=== PATIENT | male | born 1965 | race Caucasian/White ===

== ENCOUNTER 2018-04-14 19:34 | Inpatient (IN) | payer BC ==
[~2018-04-14 19:34] MED LIST: ISOVUE-370 76%-LOCM 1 ML ONE
[2018-04-14 21:14] LABS: Hemoglobin 16.9 g/dL (14.0-18.0); Mean Corpuscular HGB CONC 33.6 g/dL (32.0-36.0); Mean Corpuscular Hemoglobin 30.3 pg (27.0-31.0); Mean Corpuscular Volume 90.2 fL (78.0-98.0); Mean Platelet Volume 6.8 fL (7.4-10.4); Platelet Count 272 thou/uL (130-400); RBC Distribution Width 12.2 % (11.5-14.5); Red Blood Cell (RBC) Count 5.58 mill/uL (4.70-6.10); White Blood Cell (WBC) Count 22.6 thou/uL (4.8-10.8)
[2018-04-14 21:32] LABS: ALT (SGPT) 19 U/L (8-55); AST (SGOT) 20 U/L (5-34); Albumin 4.6 g/dL (3.5-5.0); Alkaline Phosphatase 73 U/L (40-150); Anion Gap 14 mmol/L (10-20); BUN (Urea Nitrogen) 12 mg/dL (8.4-25.7); Band 8 % (5-11); Calc. Creatinine Clearance 0 mL/min (70-130); Calcium 10.4 mg/dL (7.8-10.44); Carbon Dioxide 25 mmol/L (22-29); Chloride 97 mmol/L (98-107); Estimated GFR-MDRD 66; Globulin 4.1 g/dL (2.4-3.5); Glucose 162 mg/dL (70-105); Lymphocytes 16 % (21-51); MDiff Complete? YES; Monocytes 7 % (0-10); Neutrophil 68 % (42-75); PLT Morphology Comment Appears Adequate; Protein, Total 8.7 g/dL (6.0-8.3); Reactive Lymphocytes 1 % (0-10); Sodium 132 mmol/L (136-145)
[2018-04-14] MEDS ORDERED: Ketorolac Tromethamine 30 MG/ML VIAL ONE (21:48)
[2018-04-14] MEDS ORDERED: Acetaminophen 500 MG TAB ONE (21:48)
[2018-04-14] MEDS ORDERED: Clindamycin/D5W 600 mg/50 ml Premix Bag ONE (21:58)
[2018-04-14] MEDS ORDERED: Clindamycin/D5W 600 MG in Premix Bag 1 BAG IVPB SCH (22:00)
--- NOTE | 2018-04-14 22:33 | CT ---
CT NECK SOFT TISSUES WITH AND WITHOUT CONTRAST: HISTORY: Swollen left neck. FINDINGS: Pre and post contrast enhanced CT images demonstrate extensive edema and inflammatory change involvin g the left parotid gland. This involves both the superficial and deep lobes of the parotid, and no d efinite evidence of sialoliths are seen. No definite evidence of radiopaque density is seen within t he Chris duct. No evidence of a left parotid abscess is seen. Some mild left jugulodigastric lymphadenopathy is see n. The left jugulodigastric lymph node measures 8.5 x 12 mm. There is abnormal soft tissue asymmetry in the left hypopharynx, extending into the left and posterio r supraglottic region. I cannot exclude the possibility of a pharyngeal mucosal based mass. Correla te with direct visualization. There is also asymmetric soft tissue thickening and some enhancement involving the left external carolyn tory canal. IMPRESSION: 1. Inflammatory change involving the left parotid gland. 2. Pharyngeal mucosal based area of soft tissue asymmetry in the left hypopharynx and supraglottic r egion. Malignancy cannot be excluded. Correlate with direct visualization. POS: TAMIKA
[2018-04-14] MEDS ORDERED: hydrALAZINE 20 MG/ML VIAL ONE (22:40)
[2018-04-14] MEDS ORDERED: Dexamethasone 4 mg/ml Vial ONE (23:03)
[2018-04-15 00:59] VITALS: BMI 29.1
[2018-04-15] MEDS ORDERED: Ondansetron ODT 4 MG TAB SL PRN (01:09)
[2018-04-15] MEDS ORDERED: Ondansetron PF 4 MG/2 ML Vial IVP PRN ×2 (01:09→04:32)
[2018-04-15] MEDS ORDERED: HYDROcodone/Acetaminophen 5/325 mg Tablet PO PRN ×2 (01:09)
[2018-04-15] MEDS ORDERED: Acetaminophen 325 MG TAB PO PRN (01:09)
[2018-04-15] MEDS: Dextrose 5 % And 0.9 % NaCl 1,000 ML IV SCH (01:23)
[2018-04-15 02:16] LABS: Lactic Acid 1.9 mmol/L (0.5-2.2)
[2018-04-15] MEDS ORDERED: hydrALAZINE 20 MG/ML VIAL SLOW IVP PRN ×2 (04:32)
[2018-04-15] MEDS ORDERED: HYDROcodone/Acetaminophen 10/325 mg Tablet PO PRN (04:32)
[2018-04-15] MEDS ORDERED: Ondansetron ODT 4 MG TAB PO PRN (04:32)
[2018-04-15] MEDS ORDERED: Enoxaparin Sodium 40 MG/0.4 ML SYRINGE SC SCH (04:32)
[2018-04-15] MEDS ORDERED: Calcium Carbonate 500 MG ChewTAB PO PRN (04:32)
[2018-04-15] MEDS: Clindamycin/D5W 600 MG in Premix Bag 1 BAG IVPB SCH ×4 (05:19→23:20)
[2018-04-15] MEDS: Acetaminophen 325 MG TAB PO PRN ×3 (05:25→23:20)
[2018-04-15] MEDS ORDERED: Clindamycin/D5W 600 MG in Premix Bag 1 BAG IVPB SCH (06:00)
--- NOTE | 2018-04-15 06:14 | HP ---
PRIMARY CARE PHYSICIAN: Currently, the patient does not have a primary care physician. CHIEF COMPLAINT: "Swelling on the left side of my face." HISTORY OF PRESENT ILLNESS: Mr. Olvera is a pleasant 52-year-old gentleman that has no significant [facility] medical history, who says that on Saturday, he began noticing some swelling on the left side of hi s face. He says a couple of his teeth were hurting at that time, so he thought it was probably his t eeth causing the problem. Then, on Saturday, he noticed more swelling and then started having some chi lls and the swelling got to the point where it was almost swelling his eyes shut. He says he went to his dentist thinking it was his teeth and the dentist told him that that was not the problem and ref erred him to the emergency room. He was evaluated in the ER and found to have an elevated white bloo d cell count at 22,600. A CT scan of the neck was done, which showed that he had some swelling aroun d the left parotid gland and there was a pharyngeal mucosal-based area of asymmetry in the left hypop harynx, which could not be further characterized. He is being admitted for further treatment. The p atient denied having any fevers. He says that the area was not originally very painful, but now it i s a little bit sore. He says that he did have some swelling similar to this before, about 5 years ag o, but that was "due to his teeth." He denies any dysphagia or odynophagia. He denies any shortness of breath, no nausea, no vomiting. REVIEW OF SYSTEMS: All systems are reviewed and are negative except for that mentioned in history of present illness. PAST MEDICAL HISTORY: Negative for any known medical problems. PAST SURGICAL HISTORY: None. ALLERGIES: No known drug allergies. SOCIAL HISTORY: He is . He has no children. 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 He occa sionally smokes and he also drinks a couple of beers a day. FAMILY HISTORY: No history of any inheritable diseases. MEDICATIONS: Currently, none. PHYSICAL EXAMINATION: GENERAL: On physical, he is alert and oriented. He appears to be in no acute distress. He is well- developed and well-nourished. VITAL SIGNS: Blood pressure was initially 187/122 and is currently approximately 160/100, heart rate is 100, respiratory rate of 18, and temperature was 98.6. HEENT: His pupils are equal, round, and reactive. Extraocular muscles are intact. His sclerae are anicteric. Throat: There is no erythema. The uvula is midline. He did have some bad teeth, his po sterior molars, which they were broken off and there appears to be some purulent drainage from the te eth. There was no bulging though of the oral mucosa on the inside. On his tympanic membranes on the right, there is quite a bit of wax buildup; however, on the left, in the external canal, there is ac tually some fresh blood in the external canal, and at the entrance to the internal canal, there was s ome serous drainage as well and a small opening with clear to serosanguineous drainage. He has tense edema in the left side of his face all the way up to the periorbital region as well as some indurati on and this extends down into the submandibular area. NECK: No geneva adenopathy was palpated on the neck and so, therefore, on the neck exam, there was no adenopathy. There were no bruits. LUNGS: Clear to auscultation. There was no wheezing, no rales, no rhonchi. CARDIOVASCULAR: He had a normal S1 and S2. I did not appreciate an S3 or S4. No murmurs, clicks, o r rubs. ABDOMEN: Soft, it is nontender, nondistended. Positive for bowel sounds. There is no rebound, no g uarding, no organomegaly. EXTREMITIES: Lower extremities, there is no edema. MUSCULOSKELETAL: There is no muscle tenderness. He has got good dorsalis pedis pulses bilaterally. Upper extremities, there is no edema as well. SKIN AND INTEGUMENT: There are no skin changes other than that previously mentioned on the left side of the face, and no rashes, no evidence of any alopecia. LABORATORY RESULTS: White blood cell count is 22.6, hemoglobin 16.9, hematocrit is 50.3, platelet co unt is 272. Sodium 132, potassium 4.0, chloride is 97, CO2 is 25, BUN of 12, creatinine 1.15, glucos e is 162. Lactic acid was 2.7, amylase was 1470. ASSESSMENT AND PLAN: This is a 52-year-old gentleman, who presented to the emergency room with, 1. Left facial swelling. He was found to have inflammation around the parotid and an elevated amyla se as well. He, therefore, likely has a parotitis, possibly a parotid stone. He will be admitted to the medical floor, started on IV antibiotics and ENT has been consulted. He does not clinically hav e compromise to his airway. He also meets sepsis criteria with the elevated lactate and elevated whi te blood cell count and tachycardia. 2. Elevated blood pressure. We will continue to monitor his blood pressure, but I suspect he has hy pertension, which has gone undiagnosed and will likely need to be started on an antihypertensive and be discharged on one as well.
[2018-04-15] MEDS: HYDROcodone/Acetaminophen 5/325 mg Tablet PO PRN ×2 (08:09→11:46)
[2018-04-15] MEDS: Sodium Chloride 0.9% 1,000 ML IV SCH ×2 (11:52→23:22)
--- NOTE | 2018-04-15 15:21 | PDOC.PN ---
- Subjective Encounter Start Date: 04/15/18 Encounter Start Time: 10:45 Several days of left facial edema. Has drainage from the left ear. Started around left maxillary molar area. Denies fevers. - Objective Resuscitation Status: Resuscitation Status FULL:Full Resuscitation Vital Signs & Weight: Vital Signs (12 hours) Temp Pulse Resp BP Pulse Ox 04/15/18 12:24 97.9 F 95 20 159/90 H 95 04/15/18 08:16 98.5 F 97 18 160/87 H 98 04/15/18 03:56 97.8 F 97 20 150/93 H 95 Weight Admit Weight 215 lb Weight 215 lb Result Diagrams: 04/14/18 21:03 04/14/18 21:03 Phys Exam - Physical Examination Constitutional: NAD Large are of edema, induration and erythema from periorbiral area and forehead to neck and from nose to post-auricular area. Left EAC drng Respiratory: no wheezing, no rales, no rhonchi, clear to auscultation bilateral Cardiovascular: RRR, no significant murmur Dx/Plan (1) Facial cellulitis Code(s): L03.211 - CELLULITIS OF FACE Status: Acute (2) Elevated blood pressure reading Code(s): R03.0 - ELEVATED BLOOD-PRESSURE READING, W/O DIAGNOSIS OF HTN Status : Acute - Plan * CT reviewed. Large are of inflammation and soft tissue edema. Neoplasm unlikely given the rapid development. ENT consult pending. On clindamycin. Add Vanc. IVF maintenance. * Continue to monitor BP.
[2018-04-15] MEDS: Vancomycin HCl 1 GM in Premix Bag 1 BAG IVPB SCH (17:10)
[2018-04-15] MEDS: Ketorolac Tromethamine 30 MG/ML VIAL IVP PRN (17:15)
[2018-04-16] MEDS: Vancomycin HCl 1 GM in Premix Bag 1 BAG IVPB SCH ×2 (03:10→15:18)
[2018-04-16] MEDS: Sodium Chloride 0.9% 1,000 ML IV SCH ×2 (03:10→23:29)
[2018-04-16] MEDS: Ketorolac Tromethamine 30 MG/ML VIAL IVP PRN ×3 (03:11→23:28)
[2018-04-16] MEDS: Clindamycin/D5W 600 MG in Premix Bag 1 BAG IVPB SCH ×4 (05:51→23:29)
[2018-04-16 06:37] LABS: Band 29 % (5-11); Hemoglobin 13.5 g/dL (14.0-18.0); Lymphocytes 6 % (21-51); MDiff Complete? YES; Mean Corpuscular HGB CONC 32.2 g/dL (32.0-36.0); Mean Corpuscular Hemoglobin 29.4 pg (27.0-31.0); Mean Corpuscular Volume 91.4 fL (78.0-98.0); Mean Platelet Volume 7.2 fL (7.4-10.4); Monocytes 8 % (0-10); Neutrophil 57 % (42-75); Platelet Count 265 thou/uL (130-400); White Blood Cell (WBC) Count 17.2 thou/uL (4.8-10.8)
[2018-04-16 06:45] LABS: Anion Gap 11 mmol/L (10-20); BUN (Urea Nitrogen) 19 mg/dL (8.4-25.7); Calc. Creatinine Clearance 149 mL/min (70-130); Calcium 8.8 mg/dL (7.8-10.44); Carbon Dioxide 23 mmol/L (22-29); Chloride 104 mmol/L (98-107); Estimated GFR-MDRD Greater than 90; Glucose 124 mg/dL (70-105); Potassium 3.4 mmol/L (3.5-5.1); Sodium 135 mmol/L (136-145)
[2018-04-16] MEDS ORDERED: Dexamethasone 10 MG/ML VIAL SLOW IVP SCH (14:45)
--- NOTE | 2018-04-16 17:44 | PDOC.PN ---
- Subjective Encounter Start Date: 04/16/18 Encounter Start Time: 15:30 Patient seen and examined for Sepsis. Feels better. Facial swelling improving. No new complaints. No overnight events - Objective Resuscitation Status: Resuscitation Status FULL:Full Resuscitation MAR Reviewed: Yes Vital Signs & Weight: Vital Signs (12 hours) Temp Pulse Resp BP Pulse Ox 04/16/18 12:46 98.9 F 85 16 124/70 96 04/16/18 09:25 95 04/16/18 08:33 98.5 F 83 18 123/76 95 Weight Admit Weight 215 lb Weight 215 lb I&O: 04/15/18 04/16/18 04/17/18 06:59 06:59 06:59 Intake Total 900 Balance 900 Result Diagrams: 04/16/18 05:16 04/16/18 05:16 Radiology Reviewed by me: Yes (CT neck - Parotitis) Phys Exam - Physical Examination Constitutional: NAD HEENT: moist MMs Swelling on left 1/2 face Respiratory: no wheezing, no rhonchi Cardiovascular: RRR, no rub Gastrointestinal: soft, non-tender, positive bowel sounds Musculoskeletal: no edema Neurological: moves all 4 limbs Dx/Plan - Plan DVT proph w/SCDs 1. Sepsis with acute organ dysfunction due to left Parotitis 2. Lactic acidosis due to #1 3. Hypokalemia 4. Hyponatremia PLAN: Await ENT input Cont IVF Replace electrolytes Cont Clindamycin/Vancomycin AM labs Laboratory Tests 04/14/18 04/14/18 21:03 21:03 Lactic Acid 2.7 H Amylase 1470.0 H Review of Systems - Review of Systems Respiratory: negative: Cough, Dry, Shortness of Breath, Hemoptysis, SOB with Excertion, Pleuritic Pain, Sputum, Wheezing Cardiovascular: negative: chest pain, palpitations, orthopnea, paroxysmal nocturnal dyspnea, edema, light headedness, other - Medications/Allergies Allergies/Adverse Reactions: Allergies Allergy/AdvReac Type Severity Reaction Status Date / Time No Known Drug Allergies Allergy Verified 04/16/18 04:02 Medications: Current Medications Acetaminophen (Tylenol) 650 mg PO Q4H PRN PRN Reason: Headache/Fever/Mild Pain (1-3) Last Admin: 04/15/18 23:20 Dose: 650 mg Hydrocodone Bitart/Acetaminophen ([place] 10/325) 1 tab PO Q4H PRN PRN Reason: SEVERE Pain (7-10) Hydrocodone Bitart/Acetaminophen ([place] 5/325) 1 tab PO Q4H PRN PRN Reason: Moderate Pain (4-6) Last Admin: 04/15/18 11:46 Dose: 1 tab Calcium Carbonate (Tums) 1,000 mg PO Q4H PRN PRN Reason: Heartburn or Indigestion Hydralazine HCl (Apresoline) 20 mg SLOW IVP Q6H PRN PRN Reason: Blood Pressure Hydralazine HCl (Apresoline) 10 mg SLOW IVP Q4H PRN PRN Reason: Blood Pressure Clindamycin Phosphate/Dextrose (600 mg/ Device) 50 mls @ 100 mls/hr IVPB Q6HR [facility] Last Admin: 04/16/18 11:43 Dose: 50 mls Sodium Chloride (Normal Saline 0.9%) 1,000 mls @ 75 mls/hr IV .[id number] [facility] Last Admin: 04/16/18 03:10 Dose: 1,000 mls Vancomycin HCl 1 gm/ Device 200 mls @ 200 mls/hr IVPB 0400,1600 [facility] Last Admin: 04/16/18 15:18 Dose: 200 mls Ketorolac Tromethamine (Toradol) 15 mg IVP Q6H PRN PRN Reason: Pain 4-6 Stop: 04/20/18 04:33 Last Admin: 04/16/18 11:41 Dose: 15 mg Ondansetron HCl (Zofran Odt) 4 mg PO Q6H PRN PRN Reason: Nausea/Vomiting Ondansetron HCl (Zofran) 4 mg IVP Q6H PRN PRN Reason: Nausea/Vomiting Saccharomyces Boulardii (Florastor) 250 mg PO DAILY [facility]
[2018-04-16] MEDS: HYDROcodone/Acetaminophen 5/325 mg Tablet PO PRN (19:48)
[2018-04-17 04:09] LABS: #Monocytes 0.4 thou/uL (0.11-0.59); #Neutrophils 12.7 thou/uL (1.40-6.50); %Basophils 0.3 % (0.0-1.0); %Eosinophils 0.1 % (0.0-10.0); %Monocytes 2.7 % (0.0-10.0); %Neutrophils 89.9 % (42.0-75.0); Hemoglobin 13.5 g/dL (14.0-18.0); Mean Corpuscular HGB CONC 33.8 g/dL (32.0-36.0); Mean Corpuscular Volume 91.6 fL (78.0-98.0); Mean Platelet Volume 7.1 fL (7.4-10.4); Platelet Count 286 thou/uL (130-400); RBC Distribution Width 12.2 % (11.5-14.5); Red Blood Cell (RBC) Count 4.34 mill/uL (4.70-6.10); White Blood Cell (WBC) Count 14.1 thou/uL (4.8-10.8)
[2018-04-17 04:25] LABS: Vancomycin, Trough 5.2 ug/mL
[2018-04-17 04:32] LABS: Anion Gap 15 mmol/L (10-20); BUN (Urea Nitrogen) 20 mg/dL (8.4-25.7); Calc. Creatinine Clearance 155 mL/min (70-130); Calcium 8.4 mg/dL (7.8-10.44); Carbon Dioxide 19 mmol/L (22-29); Chloride 105 mmol/L (98-107); Estimated GFR-MDRD Greater than 90; Glucose 138 mg/dL (70-105); Magnesium 2.3 mg/dL (1.6-2.6); Potassium 3.8 mmol/L (3.5-5.1); Sodium 135 mmol/L (136-145)
[2018-04-17] MEDS: Clindamycin/D5W 600 MG in Premix Bag 1 BAG IVPB SCH ×2 (05:05→11:17)
[2018-04-17] MEDS: Vancomycin HCl 1.25 GM in Sodium Chloride 0.9% 250 ML 250 ML IVPB SCH ×2 (05:05→12:17)
[2018-04-17] MEDS: Vancomycin HCl 1 GM in Premix Bag 1 BAG IVPB SCH (05:12)
[2018-04-17] MEDS ORDERED: Saccharomyces boulardii 250 MG CAP PO SCH (09:00)
[2018-04-17 17:49] VITALS: BP 169/93; TEMP 98.3
--- NOTE | 2018-04-18 09:09 | DIS ---
DATE OF ADMISSION: 04/14/2018 DATE OF DISCHARGE: 04/17/2018 DISCHARGE DISPOSITION: Home. FOLLOWUP: Follow up with primary care physician at [facility] in 1 week. Follow up with Dr. Lloyd GELLER in 2-3 days. ALLERGIES: No known drug allergies. DISCHARGE MEDICATIONS: 1. Clindamycin 300 mg 3 times a day for 10 days. 2. Florastor 250 mg daily. The patient was seen on the day of discharge. Denies any new complaints, no chest pain, shortness of breath, palpitations. Swelling of the face is improving. BRIEF HOSPITAL COURSE: The patient is a 52-year-old male who presented to the emergency room with le ft-sided facial swelling. Please refer to the history and physical dated 04/14/2018 for further deta ils. The patient was admitted to the hospital with a diagnosis of left facial swelling. CT scan of the ne ck in the emergency room showed inflammatory changes involving the left parotid gland. There was als o some pharyngeal mucosal based area of soft tissue asymmetry in the left hypopharynx and supraglotti c region. He was started on broad spectrum antibiotics that included vancomycin and clindamycin. He was seen by ENT, Dr. Hernández. I discussed with Dr. Hernández, who recommended clindamycin orally for th e next 10 days. He was advised to follow up with Dr. Hernández in 2-3 days. The swelling has significa ntly improved. His WBC count on admission was 22.6 that has improved to 14.1. A 29% bandemia has re solved. Lactic acidosis of 2.7 has resolved. He appears stable for discharge. FINAL DIAGNOSES: 1. Left facial swelling secondary to parotitis. 2. Sepsis with acute organ dysfunction secondary to #1. 3. Lactic acidosis. 4. Hypokalemia. 5. Hyponatremia. 6. Elevated amylase of 1470, probably secondary to #1. Plan of care was discussed with the patient in detail. He stated understanding.
== END 2018-04-17 15:50 | disposition home or self-care (01) | DRG 872 ==
LOC: ERS 19:34 → T4-A 22:38
PROVIDERS: ADMIT Internal Medicine; ATTEND Internal Medicine
DX: A41.9 Sepsis, unspecified organism (principal); E87.2 Acidosis; E87.1 Hypo-osmolality and hyponatremia; L03.211 Cellulitis of face; F17.210 Nicotine dependence, cigarettes, uncomplicated; R03.0 Elevated blood-pressure reading, without diagnosis of hypertension; K11.20 Sialoadenitis, unspecified; E87.6 Hypokalemia
CPT/HCPCS: 36415; 70492; 80048; 80053; 80202; 82150; 83605; 83735; 85025; 90471; 90686; 90732; 96361; 96365; 96375; G0008; G0009; J0360; J1100; J1650; J1885; J3370; J3490; J7050